=== PATIENT | female | born 1965 | race Two or more races ===

== ENCOUNTER → 2017-12-30 | Outpatient (CLI) | payer OTHER ==
[~2017-12-30] MED LIST: ESTR2TAB PO; FLUO20TA25 PO; LISI-167 PO; NAPR250T6 PO
== END | disposition home or self-care (01) ==
LOC: CFH 14:26
PROVIDERS: ATTEND Obstetrics & Gynecology Gynecology
DX: Z12.31 Encounter for screening mammogram for malignant neoplasm of breast (principal)
CPT/HCPCS: 77067

== ENCOUNTER 2020-07-29 15:06 | Outpatient (CLI) | payer OTHER ==
[2020-07-29] MEDS ORDERED: Turmeric PO (15:35)
[2020-07-29] MEDS ORDERED: CHOL10003 PO (15:35)
[2020-07-29] MEDS ORDERED: DICL50TA4 PO (15:35)
[2020-07-29] MEDS ORDERED: GLUC15006 PO (15:35)
[2020-07-29] MEDS ORDERED: ESTR1TAB15 PO (15:35)
[2020-07-29] MEDS ORDERED: VITA400T6 PO (15:35)
[2020-07-29] MEDS ORDERED: MELO15TA24 PO (15:35)
[2020-07-29 16:16] LABS: BASOPHILS % (AUTO) 1 % (0-1); EOSINOPHILS % (AUTO) 2 % (1-7); LYMPHOCYTES % (AUTO) 35 % (22-44); MEAN CORPUSCULAR HEMOGLOBIN 30.4 pg (27.0-34.8); MEAN CORPUSCULAR HGB CONC 32.8 g/dL (32.4-35.8); MEAN PLATELET VOLUME 10.7 fL (7.4-10.4); MONOCYTES % (AUTO) 8 % (2-9); NEUTROPHILS % (AUTO) 54 % (42-75); PLATELET COUNT 176 x10^3/uL (130-400); RED BLOOD COUNT 4.29 x10^6/uL (3.82-5.3); RED CELL DISTRIBUTION WIDTH 14.4 % (9.6-15.2)
[2020-07-29 16:30] LABS: ANION GAP 4 mmol/L (5-15); CALCIUM 8.8 mg/dL (8.5-10.1); CHLORIDE 108 mmol/L (98-107); CREATININE 0.87 mg/dL (0.55-1.02)
[2020-07-29 16:32] LABS: MD NO
== END 2020-07-29 23:59 | disposition home or self-care (01) ==
LOC: STAR 15:06
PROVIDERS: ATTEND Orthopaedic Surgery
DX: Z01.810 Encounter for preprocedural cardiovascular examination (principal); Z01.818 Encounter for other preprocedural examination; M17.12 Unilateral primary osteoarthritis, left knee
CPT/HCPCS: 36415; 80048; 85025; 87081; 93005

== ENCOUNTER → 2020-08-08 | Outpatient (CLI) | payer OTHER ==
[~2020-08-08] MED LIST changes: +CHOL10003 PO; +DICL50TA4 PO; +ESTR1TAB15 PO; +GLUC15006 PO; +MELO15TA24 PO; +Turmeric PO; +VITA400T6 PO
== END | disposition home or self-care (01) ==
LOC: STAR 15:28
PROVIDERS: ATTEND Anesthesiology
DX: Z01.812 Encounter for preprocedural laboratory examination (principal); Z20.828 Contact with and (suspected) exposure to other viral communicable diseases
CPT/HCPCS: 36415; 87635